=== PATIENT | male | born 1975 | race Caucasian/White ===

== ENCOUNTER 2019-05-21 21:05 | Emergency (ER) | payer MEDICAID ==
[~2019-05-21] VITALS: Ht 190.5 cm; Wt 100.0 kg
[~2019-05-21 21:05] MED LIST: ASPI-1264 PO; DOXY-224 PO; IBUP-1984 PO
[2019-05-21 21:22] VITALS: BP 153/107
== END 2019-05-21 23:13 | disposition home or self-care (01) ==
LOC: ER 21:06
DX: S96.912A Strain of unspecified muscle and tendon at ankle and foot level, left foot, initial encounter (principal); I48.91 Unspecified atrial fibrillation; Z90.49 Acquired absence of other specified parts of digestive tract; Z79.82 Long term (current) use of aspirin; Z79.899 Other long term (current) drug therapy; X58.XXXA Exposure to other specified factors, initial encounter; Y93.89 Activity, other specified; Y92.89 Other specified places as the place of occurrence of the external cause; Y99.8 Other external cause status
CPT/HCPCS: 73610; 99283

== ENCOUNTER 2022-01-20 13:37 | Emergency (ER) | payer MEDICAID ==
[~2022-01-20] VITALS: Ht 190.5 cm; Wt 109.0 kg
[2022-01-20 14:14] VITALS: BP 146/94
[2022-01-20] MEDS ORDERED: CLIN35GE8 TOP (15:25)
[2022-01-20] MEDS ORDERED: DOXY-1 PO (15:25)
== END 2022-01-20 15:36 | disposition home or self-care (01) ==
LOC: ER 13:37
DX: L73.9 Follicular disorder, unspecified (principal); Z98.890 Other specified postprocedural states
CPT/HCPCS: 99283

== ENCOUNTER 2024-12-03 13:32 | Emergency (ER) | payer MEDICAID ==
[~2024-12-03] VITALS: Ht 190.5 cm; Wt 113.8 kg
[~2024-12-03 13:32] MED LIST changes: +CLIN35GE8 TOP
[2024-12-03 13:46] VITALS: BP 137/108; PULSE 74; RESP 16; TEMP 97.4; O2SAT 99
[2024-12-03] MEDS ORDERED: TRET15GE TOP (14:09)
[2024-12-03] MEDS ORDERED: CEPH-585 PO (14:09)
[2024-12-03] MEDS ORDERED: MUPI22OI30 TOP (14:09)
--- NOTE | 2024-12-03 14:09 | Physician Documentation ---
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 He reports that he has developed an itchy rash to his face, that followed shaving. 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 No chills or fever, nausea vomiting, chest pain or shortness of breath. He reports that he otherwise feels well. Medication Reconciliation Allergies: Coded Allergies: No Known Allergies (Unverified , 12/03/24) Scheduled Aspirin* (Aspirin*), 325 MG PO DAILY, (Reported) Cephalexin*Monohydrate* (Keflex*), 1 CAP PO QID Clindamycin Phos/Benzoyl Perox (Clinda-Benzoyl Perox 1-5% Pump), 1 APPLIC TOP BID Doxycycline Hyclate (Doxycycline Hyclate), 1 CAP PO BID Ibuprofen* (Motrin*), 1-2 TAB PO Q8H Mupirocin* (Bactroban*), 1 APPLIC TOP Q8H Tretinoin (Tretinoin), 1 APPLIC TOP HS Past Medical History Past Medical History: Headache, Atrial Fibrillation Past Surgical History: appendectomy Alcohol Use: Occasionally Drug Use: none Lives with: Family Lives In: Home Occupation: employed Review of Systems ROS As stated above in the HPI, otherwise all systems are reviewed and negative. Physical Exam Vital Signs: Temperature: 97.4, Source: Temporal, Heart Rate: 74, Respiratory Rate: 16, BP: 137/108, Pulse Oximetry: 99, Weight: 113.800 Physical Exam General: Alert, no apparent distress. Neck: Full range of motion. Respiratory: Lungs clear, no respiratory distress. Chest: No accessory muscle use. Cardiovascular: Regular rate and rhythm, no murmurs. Gastrointestinal: Soft, nontender, nondistended. Bowels sounds present. Extremities: Normal range of motion, no deformity. Neurologic: Oriented x4. Psychiatric: Normal mood and affect. Skin: Normal color, warm and dry. No edema, no ecchymosis. Mild erythema to multiple superficial open areas on shaved facial skin. Progress Results/Orders Results/Orders Vital Signs 12/03/24 13:46 Temp 97.4 Pulse 74 Resp 16 B/P (MAP) 137/108 Pulse Ox 99 Medical Decision Making Additional Comment Well appearing. No evidence of cellulitis. Initial treatment to be with tretinoin and mupirocin and then can add po keflex for lack of improvement. Departure Time of Disposition: 14:06 Disposition: 01 HOME / SELF CARE / HOMELESS Impression: Primary Impression: Pseudofolliculitis barbae Discharge Instructions: Folliculitis Additional Instructions: See attached treatment guidelines. Use the topical creams provided and then start the oral antibiotic if no better in two days. Return if worse. Referrals: NO PRIMARY CARE PROVIDER (PCP) Prescriptions Cephalexin*Monohydrate* (Keflex*) 500 Mg Capsule 1 CAP PO QID for 5 Days, #20 CAP Prov: RAQUEL PORTER NP 12/03/24 Mupirocin* (Bactroban*) 22 Gm Tube 1 APPLIC TOP Q8H for 7 Days, #22 GM apply to affected area(s) Prov: RAQUEL PORTER NP 12/03/24 Tretinoin (Tretinoin) 0.01 % Gel..gram. 1 APPLIC TOP HS for 30 Days, #45 GM 0 Refills Prov: RAQUEL PORTER NP 12/03/24 Education Educated: Patient Educated regarding: diagnosis Signature Scribe Signature: x Attestation: The note accurately reflects work and decisions made by me.Raquel Dominguez NP 12/03/24 14:20 RAQUEL PORTER NP Dec 03, 2024 14:09
== END 2024-12-03 14:12 | disposition home or self-care (01) ==
LOC: ER 13:32
DX: L73.1 Pseudofolliculitis barbae (principal); I48.91 Unspecified atrial fibrillation; Z90.49 Acquired absence of other specified parts of digestive tract; Z79.82 Long term (current) use of aspirin; Z79.899 Other long term (current) drug therapy; Z72.89 Other problems related to lifestyle
CPT/HCPCS: 99283